=== PATIENT | female | born 1945 | race Caucasian/White ===

== ENCOUNTER 2024-03-15 13:30 | Day surgery (SDC) | payer MEDICARE ==
[2024-03-15] MEDS ORDERED: DIPRIVAN 200 MG/20 ML IV ONE (15:07)
[2024-03-15] MEDS ORDERED: Lactated Ringers 1,000 ML IV ONE (16:12)
--- NOTE | 2024-03-15 16:41 | XRAY ---
Indication: Lumbar GLORIA. Intraoperative fluoroscopy provided for 18 seconds. 3 digital spot image submitted for interpretation demonstrates posterior needle tip projecting posterior to lumbosacral junction interspace. Small amount of contrast injected for needle tip placement. Correlate with intraoperative findings/report.
--- NOTE | 2024-03-15 16:44 | XRAY ---
18 seconds of fluoroscopy was used in surgery for a lumbar GLORIA.
== END 2024-03-15 15:47 | disposition home or self-care (01) ==
LOC: SDC-PAIN 13:30
PROVIDERS: ATTEND Psychiatry & Neurology Pain Medicine
DX: M54.16 Radiculopathy, lumbar region (principal)
CPT/HCPCS: 62323; 72100; 77003; J2704; Q9966